=== PATIENT | male | born 1950 | race Caucasian/White ===

== ENCOUNTER → 2019-01-12 16:53 | Outpatient (CLI) | payer OTHER, SELFPAY ==
--- NOTE | 2019-01-12 | ASPS_PTH ---
PATIENT: MEENAKSHI CISNEROS LOC: [facility] U#:[id number] AGE/SX: 74/M ROOM: RE01/12/[address]: Dr. 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 See comment. LUIS MANUEL:pattie 01/14/19 COMMENT Correlation with clinical, radiologic findings and appropriate follow up are necessary. Case has been reviewed in consultation with Dr. Hale who concurs with the above diagnosis. IDC:AM CYTOLOGY STUDY Slides are reviewed. CYTOLOGY GROSS Received are eight smears labeled with the patient's name and designated per the requisition as left thyroid. Submitted for staining. / pattie 01/12/19 TC: CPT: 24497
== END ==
PROVIDERS: Referring Provider Surgery; Visit Provider Surgery
DX: E04.1 Nontoxic single thyroid nodule (principal)
CPT/HCPCS: 88161; 88313